=== PATIENT | female | born 1965 ===

== ENCOUNTER 2017-10-22 11:31 | Outpatient (CLI) | payer OTHER | END 2017-10-22 13:30 | disposition home or self-care (01) | LOC: MAMO-SONO 11:31 | DX: Z12.31 Encounter for screening mammogram for malignant neoplasm of breast (principal); Z11.3 Encounter for screening for infections with a predominantly sexual mode of transmission; Z11.9 Encounter for screening for infectious and parasitic diseases, unspecified; Z12.11 Encounter for screening for malignant neoplasm of colon; Z13.0 Encounter for screening for diseases of the blood and blood-forming organs and certain disorders involving the immune mechanism; Z13.1 Encounter for screening for diabetes mellitus; Z13.220 Encounter for screening for lipoid disorders; F17.218 Nicotine dependence, cigarettes, with other nicotine-induced disorders ==